=== PATIENT | female | born 2000 | race Caucasian/White ===

== ENCOUNTER 2018-03-30 09:04 | Emergency (ER) | payer OTHER ==
[2018-03-30 13:09] LABS: Appearance,Urine Cloudy (Clear); Bacteria,Urine Few /hpf; Bilirubin,Urine Negative (Negative); Blood,Urine Moderate (Negative); Color,Urine Light Yellow; Glucose,Urine (UA) Negative (Negative); Ketones,Urine Negative (Negative); Leukocyte Esterase,Urine Large (Negative); Mucus,Urine Rare /hpf; Nitrite,Urine Negative (Negative); PH, Urine 6.5 (5.0-8.0); Protein,Urine 1+ (Negative); RBC,Urine 4 /hpf (0-5); Specific Gravity,Urine 1.009 (1.001-1.035); Squamous Epithelial Cell,Urine 1 /hpf (0-4); Urobilinogen,Urine <2.0 mg/dL (<2.0); WBC,Urine 61 /hpf (0-5)
--- NOTE | 2018-03-30 13:40 | ED ---
Abdominal Pain HPI - General Chief Complaint: Abdominal Pain Stated Complaint: RT SIDE AND BACK PAIN Time Seen by Provider: 03/30/18 12:34 Source: patient Mode of arrival: ambulatory Limitations: no limitations - History of Present Illness Initial Comments: This a 17-year-old female with no past medical history presenting today for chief complaint of right-sided flank pain 2 days. Patient states that since January she has had burning with urination, urgency frequency that has been on and off. She states that she thought that the symptoms had gone away, when 3 days, all the symptoms returned and she began noticing some mild right-sided flank pain. Aching pain in the right side, dull in nature, without radiation. Patient denies chest pain, shortness breath, dizziness, tenderness, fever, chills, hematuria, pain with sex, abnormal discharge, vaginal, new sexual partners, abdominal pain, recent antibiotic use or any other symptoms. Patient states she did not seek medical attention for her urinary symptoms because she did not insurance. Upon arrival to emergency department today patient afebrile , vital signs within normal limits. She appears well. - Related Data Previous Rx's Medication Instructions Recorded Sulfamethox-Tmp 800-160Mg [Bactrim 1 tab PO Q12HR 7 Days #14 tab 03/30/18 DS 800-160 mg] Allergies Allergy/AdvReac Type Severity Reaction Status Date / Time No Known Allergies Allergy Verified 03/30/18 12:39 Review of Systems ROS Statement: Those systems with pertinent positive or pertinent negative responses have been documented in the HPI. ROS Other: All systems not noted in ROS Statement are negative. Constitutional: Denies: fever, chills, night sweats ENT: Denies: ear pain, throat pain Respiratory: Denies: cough, dyspnea, wheezes, hemoptysis, stridor Cardiovascular: Denies: chest pain, palpitations, dyspnea on exertion Endocrine: Denies: fatigue Gastrointestinal: Denies: nausea, vomiting, diarrhea, constipation, hematemesis Genitourinary: Reports: urgency, frequency. Denies: dysuria, hematuria, discharge, abnormal menses, dyspareunia Musculoskeletal: Reports: as per HPI. Denies: joint swelling, arthralgia Skin: Denies: rash, lesions Neurological: Denies: headache, weakness, numbness, paresthesias, confusion Past Medical History Past Medical History: No Reported History History of Any Multi-Drug Resistant Organisms: None Reported Past Surgical History: No Surgical Hx Reported Past Psychological History: No Psychological Hx Reported Smoking Status: Never smoker Past Alcohol Use History: Occasional Past Drug Use History: None Reported General Exam - General Exam Comments Initial Comments: General: The patient is awake and alert, in no distress, and does not appear acutely ill. Ears, nose, mouth and throat: There are moist mucous membranes and no oral lesions. Neck: The neck is supple, there is no tenderness or JVD. Cardiovascular: There is a regular rate and rhythm. No murmur, rub or gallop is appreciated. Respiratory: Lungs are clear to auscultation, respirations are non-labored, breath sounds are equal. No wheezes, stridor, rales, or rhonchi. Gastrointestinal: Soft, non-distended, non-tender abdomen without masses or organomegaly noted. No pulsatile masses. No palpable abdominal aorta. No pain at all 4 quadrants to deep or light palpation. There is no rebound or guarding present. Right sided CVA tenderness, negative left CVA tenderness. Mild discomfort to deep palpation of the superior lateral margin. No lower pelvic pain upon deep and light palpation. Bowel sounds are unremarkable. Musculoskeletal: Normal ROM, no tenderness. Sensation intact. Pulses equal bilaterally 2+. Neurological: A&O x 3. CN II-XII intact, There are no obvious motor or sensory deficits. Coordination appears grossly intact. Speech is normal. Skin: Skin is warm and dry and no rashes or lesions are noted. Psychiatric: Cooperative, appropriate mood & affect, normal judgment. Limitations: no limitations Course Vital Signs 03/30/18 03/30/18 09:45 13:57 Temperature 98.6 F 98.1 F Pulse Rate 95 63 Respiratory 16 17 Rate Blood Pressure 111/71 118/59 O2 Sat by Pulse 98 99 Oximetry Medical Decision Making - Medical Decision Making Urine (-). UA obtained (+) leukocyte esterase, 61 WBC, moderate blood and few bacteria. I feel pt has complicated UTI due to right sided flank pain concerning for pyelonephritis. Given age I have low suspicion for AAA, no pulsatile mass on exam pulses equal, pt is well appearing, nontoxic VS WNL. Pt deferred pelvic examination, however agreed to urine gonorrhea and chlamydia testing to r/o STI, given age and length of time with partner. Urine culture pending. Patient denies any symptoms of cervicitis at this time of low suspicion for PID given physical exam findings. Patient is instructed to follow- up with a primary care provider in one to 2 days. Given prescription for Bactrim DS twice daily 7 days. Case discussed in detail with Dr. Gallo who agrees with impression and plan. Patient discharged in stable condition. Patient is given instructions to return to emergency department for a change or worsening symptoms. Patient agreed plan. - Lab Data Lab Results 03/30/18 03/30/18 Range/Units 09:48 09:48 Urine Color Light Yellow Urine Appearance Cloudy H (Clear) Urine pH 6.5 (5.0-8.0) Ur Specific [place] 1.009 (1.001-1.035) Urine Protein 1+ H (Negative) Urine Glucose (UA) Negative (Negative) Urine Ketones Negative (Negative) Urine Blood Moderate H (Negative) Urine Nitrite Negative (Negative) Urine Bilirubin Negative (Negative) Urine Urobilinogen <2.0 (<2.0) mg/dL Ur Leukocyte Esterase Large H (Negative) Urine RBC 4 (0-5) /hpf Urine WBC 61 H (0-5) /hpf Ur Squamous Epith Cells 1 (0-4) /hpf Urine Bacteria Few H (None) /hpf Urine Mucus Rare H (None) /hpf Urine HCG, Qual Not Detected (Not Detectd) Disposition Clinical Impression: UTI (urinary tract infection) Disposition: HOME SELF-CARE Condition: Good Instructions: Urinary Tract Infection in Women (ED), Kidney Infection (ED) Additional Instructions: Please use medication as discussed. Please follow-up with family doctor in the next 2 days as discussed. Please return to emergency room if the symptoms increase or worsen or for any other concerns. Prescriptions: Sulfamethox-Tmp 800-160Mg [Bactrim DS 800-160 mg] 1 tab PO Q12HR 7 Days #14 tab Is patient prescribed a controlled substance at d/c from ED?: No Referrals: Varsha Conner MD [Primary Care Provider] - 1-2 days [facility] [[facility]FF[facility] - 1-2 days Time of Disposition: 13:41
[2018-03-30 13:58] VITALS: BP 118/59; PULSE 63; RESP 17; TEMP 98.1
== END 2018-03-30 13:58 | disposition home or self-care (01) ==
LOC: EC 09:04
DX: N39.0 Urinary tract infection, site not specified (principal)
CPT/HCPCS: 81001; 81025; 87086; 87491; 87591; 99284